=== PATIENT | female | born 1975 | race Two or more races ===

== ENCOUNTER 2024-10-17 22:29 | Emergency (ER) | payer MEDICAID, OTHER ==
[~2024-10-17] VITALS: Ht 170.2 cm; Wt 155.0 kg
--- NOTE | 2024-10-17 23:21 | ED.PDOC ---
GI ASSESSMENT HPI Comments 49-year-old female who came to the ER for abdominal pain. Patient has history of schizophrenia and anxiety. States for the past 3 weeks, she has been having intermittent episodes of epigastric abdominal pain, aching, unprovoked, nonradiating. Also complaining of vaginal/pelvic pain. Denies any nausea or vomiting or changes in bowel habits. Denies any history of abdominal surgeries Chief Complaint: Abdominal Pain Time Seen by MD: 23:20 Reviewed Notes: Nurses Notes Allergies: Coded Allergies: Acetaminophen (Verified Allergy, Unknown, 10/17/24) Codeine (Verified Allergy, Unknown, 10/17/24) Information Source: Patient Mode of Arrival: EMS Timing: Weeks Duration: Intermittent Prehospital treatment: None Quality: Aching Vomitus: None Stool: Normal Severity: None Recent: None Recent Hx of: None Pain Location: Epigastric Modifying Factors: Nothing Associated sign and symptoms: Abdominal Pain Past Medical History PAST MEDICAL HISTORY: Anxiety, Schizophrenia Surgical History: Denies all surgeries 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 COOLING TOWER TECHNICIAN Hx Family History Family History: Reviewed,noncontributory to illness Social History Smoker: Non-Smoker Alcohol: Denies ETOH Use Drugs: Denies Drug Use Lives In: Home Constitutional: denies: chills, diaphoresis, fatigue, fever, malaise, sweats, weakness, others EENTM: denies: blurred vision, double vision, ear bleeding, ear discharge, ear drainage, ear pain, ear ringing, eye pain, eye redness, hearing loss, mouth pain, mouth swelling, nasal discharge, nose bleeding, nose congestion, nose pain, photophobia, tearing, throat pain, throat swelling, voice changes, others Respiratory: denies: cough, hemoptysis, orthopnea, SOB at rest, shortness of breath, SOB with excertion, stridor, wheezing, others Cardiovascular: denies: chest pain, dizzy spells, diaphoresis, Dyspnea on exertion, edema, irregular heart beat, left arm pain, lightheadedness, palpitations, PND, syncope, others Gastrointestinal: reports: abdominal pain; denies: abdomen distended, blood streaked bowels, constipated, diarrhea, dysphagia, difficulty swallowing, hematemesis, melena, nausea, poor appetite, poor fluid intake, rectal bleeding, rectal pain, vomiting, others Genitourinary: denies: abnormal vagina bleeding, burning, dyspareunia, dysuria, flank pain, frequency, hematuria, incontinence, pain, , vagina discharge, urgency, others Neurological: denies: dizziness, fainting, headache, left sided numbness, left sided weakness, numbness, paresthesia, pre-existing deficit, right sided numbness, right sided weakness, seizure, speech problems, tingling, tremors, weakness, others Musculoskeletal: denies: back pain, gout, joint pain, joint swelling, muscle pain, muscle stiffness, neck pain, others Integumetry: denies: bruises, change in color, change in hair/nails, dryness, laceration, lesions, lumps, rash, wounds, others Allergic/Immunocompromised: denies: Difficulty Healing, Frequent Infections, H vinh, Itching, others Hematologic/Lymphatic: denies: anemia, blood clots, easy bleeding, easy bruising, swollen glands, others Endocrine: denies: excessive hunger, excessive sweating, excessive thirst, excessive urination, flushing, intolerance to cold, intolerance to heat, unexplained weight gain, unexplained weight loss, others Psychiatric: denies: anxiety, bipolar disorder, depression, hopeless, panic disorder, schizophrenia, sleepless, suicidal, others Physical Exam General Appearance: No Apparent Distress, Normal HEENT: Normal ENT Inspection, Pharynx Normal, TMs Normal Neck: Full Range of Motion, Non-Tender, Normal, Normal Inspection Respiratory: Chest Non-Tender, Lungs Clear, No Accessory Muscle Use, No Respiratory Distress, Normal Breath Sounds Cardiovascular: No Edema, No JVD, No Murmur, No Gallop, Normal Peripheral Pulses, Regular Rate/Rhythm Breast Exam: Deferred Gastrointestinal: Epigastric, No Organomegaly, No Pulsatile Mass, Normal Bowel Sounds, Soft, Tenderness Genitalia: Deferred Pelvic: Deferred Rectal: Deferred Extremities: No calf tenderness, Normal capillary refill, Normal inspection, Normal range of motion, Non-tender, No pedal edema Musculoskeletal : Apperance: Normal Neurologic: Alert, otolaryngology surgeon II-XII nml as Tested, No Motor Deficits, Normal Affect, Normal Mood, No Sensory Deficits Cerebellar Function: Normal Reflexes: Normal Skin: Dry, Normal Color, Warm Lymphatic: No Adenopathy Was a procedure done? Was a procedure done?: No GI differential Dx Differential Diagnosis: Cholecystitis, Constipation, Diverticular disease, Gastritis/PUD, Gastroenteritis, Hepatitis, Pancreatitis, UTI, Urolithiasis, X-Ray, Labs, Meds, VS Vital Signs Date Time Temp Pulse Resp B/P (MAP) Pulse Ox O2 Delivery O2 Flow Rate FiO2 10/18/24 00:12 98.6 82 102/59 (73) 98 98.6 10/17/24 22:29 97.9 70 20 122/87 (99) 97 Lab Test 10/17/24 23:32 10/17/24 23:25 10/17/24 23:22 Range/Units Beta HCG, Quantitative 1.8 1.5-4.2 mIU/mL Urine Color Yellow Yellow Urine Clarity Clear Clear Urine pH 5.5 5.0-9.0 Urine Specific [place] 1.031 1.001-1.035 Urine Protein Negative Negative Urine Ketones 1+ H Negative Urine Blood Negative Negative /uL Urine Nitrite Negative Negative Urine Bilirubin Negative Negative Urine Urobilinogen Normal Negative mg/dL Urine Leukocyte Esterase 3+ Negative /uL Urine RBC 2 0 - 4 /hpf Urine WBC 12 0 - 5 /hpf Urine Squamous Epithelial Cells Few <5 /hpf Urine Bacteria Few H None Seen /hpf Urine Mucus Few None Seen Urine Glucose Normal Normal mg/dL White Blood Count 5.1 4.4-10.8 10^3/uL Red Blood Count 3.35 L 4.0-5.20 10^6/uL Hemoglobin 10.8 L 12.2-16.2 g/dL Hematocrit 32.0 L 36.0-46.0 % Mean Corpuscular Volume 95.8 80.0-100.0 fL Mean Corpuscular Hemoglobin 32.2 H 28.0-32.0 pg Mean Corpuscular Hemoglobin Concent 33.6 32.0-36.0 g/dL Red Cell Distribution Width 15.4 H 11.8-14.3 % Platelet Count 155 140-450 10^3/uL Mean Platelet Volume 8.6 6.9-10.8 fL Neutrophils (%) (Auto) 40.3 37.0-80.0 % Lymphocytes (%) (Auto) 45.6 10.0-50.0 % Monocytes (%) (Auto) 12.6 H 0.0-12.0 % Eosinophils (%) (Auto) 0.9 0.0-7.0 % Basophils (%) (Auto) 0.6 0.0-2.0 % Neutrophils # (Auto) 2.1 1.6-8.6 10 ^3/uL Lymphocytes # (Auto) 2.3 0.4-5.4 10 ^3/uL Monocytes # (Auto) 0.6 0-1.3 10 ^3/uL Eosinophils # (Auto) 0 0-0.8 10 ^3/uL Basophils # (Auto) 0 0-0.2 10 ^3/uL Nucleated Red Blood Cells 0.1 % Sodium Level 138 136-145 mmol/L Potassium Level 3.9 3.5-5.1 mmol/L Chloride Level 105 98-107 mmol/L Carbon Dioxide Level 28 20-31 mmol/L Anion Gap 5 5-15 Blood Urea Nitrogen 26 H 9-23 mg/dL Creatinine 0.70 0.550-1.02 mg/dL Glomerular Filtration Rate Calc 107 >90 mL/min BUN/Creatinine Ratio 37.1 H 10.0-20.0 Serum Glucose 112 H 74-106 mg/dL Calcium Level 9.9 8.7-10.4 mg/dL Total Bilirubin 0.3 0.2-1.0 mg/dL Aspartate Amino Transferase (AST) 17 13-40 U/L Alanine Aminotransferase (ALT) < 9 7-40 U/L Alkaline Phosphatase 58 46-116 U/L Total Protein 7.4 5.7-8.2 g/dL Albumin 3.8 3.2-4.8 g/dL Examination: ABPLIV CLINICAL INDICATION: llq abdominal pain COMPARISON: None. CONTRAST USED: Intravenous. TECHNIQUE: A post contrast CT study of the abdomen and pelvis is performed after administration of intravenous contrast medium. The examination was performed with [address] scan done according to ALARA (As Low as Reasonably Achievable). Multiplanar reconstructions were obtained. FINDINGS: CT ABDOMEN: Lung Base: The evaluation of lung bases demonstrates no focal infiltrates or pleural effusion. Liver: The liver is normal in size. The portal venous radicles are normal. There is no intrahepatic biliary radicle dilatation. Few small simple hepatic cysts are noted. Gallbladder: The gallbladder is normal and reveals no intrinsic abnormality. The common bile duct is not dilated. Pancreas: The pancreas is normal in size and shape. No focal lesion is seen within. The peripancreatic fat-planes are normal. Spleen: The spleen is normal in size and does not show any focal abnormality. Retroperitoneum: Both adrenal glands are normal in size and morphology. There is no significant retroperitoneal lymphadenopathy. The kidneys are normal in size with no hydronephrosis or renal calculi. Vessels: Aorta, IVC and the mesenteric vessels appear unremarkable. Stomach and Bowel: The bowel loops are unremarkable. There is no ascites. Skeletal System: Thoracolumbar spine and the pelvic bone appear unremarkable. Multilevel small anterior endplate osteophytes are noted. CT PELVIS: Appendix: The appendix is unremarkable in appearance. Colon: The ascending, transverse, descending, sigmoid colon and rectum are unremarkable. Bladder: The urinary bladder is unremarkable. Pelvic Organs: Uterus is unremarkable. No adnexal mass lesion seen. No pelvic lymphadenopathy is identified. No abnormal fluid collection is seen. IMPRESSION: 1. No acute intra-abdominal pathology seen. 2. No ascites/pneumoperitoneum/abdominal mass lesion seen. Electronically Signed Time of 1ST Reevaluation: 23:18 Reevaluation 1ST: Unchanged Patient Education/Counseling: Diagnosis, Treatment Family Education/Counseling: No Family Present Departure 1 Departure Time of Disposition: 04:59 (Patient presented with abdominal pain that was concerning for possible appendicits, gastritis, cholecystitis, colitis, gastroenteritis, or orther possible surgical emergency. Data: 1. I ordered and reviewed the result of at least 3 labs including a CBC, BMP, and Urinalysis. 2. I independently interpreted the following tests: CT Abdoment and Pelvis is concerning for benign abdomen.Risk:This patient has a high risk of morbidity due to further diagnostic testing or treatment and may suffer from an acute abdominal process disorder. Fortunately workup reveals a benign abdomen and patient can be safely discharged to home with outpatient follow up.) Impression: Primary Impression: Abdominal pain Qualified Codes: R10.84 - Generalized abdominal pain Disposition: 01 HOME / SELF CARE / HOMELESS Condition: Stable Additional Instructions: Your workup today was benign including normal labs and a normal CT scan. You can take Motrin as needed for pain. You should follow up with your regular doctor within 1 week. You should stay well rested and well hydrated. If your symptoms worsen or you have any other concerns please return to the emergency room. Discharged With: Self Critical Care Note Critical Care Time?: No Stability Stability form required: No Heart Score Heart Score: Heart Score Response (Comments) Value History N/A 0 EKG N/A 0 Age N/A 0 Risk Factors N/A 0 Troponin N/A 0 Total 0 I personally scribed for SYMONE KIRK MD ([facility]) on 10/17/24 at 23:21. Electronically submitted by [facility] I personally scribed for SYMONE KIRK MD ([facility]) on 10/18/24 at 04:16. Electronically submitted by Robin Zazueta ([facility] SYMONE KIRK MD Oct 17, 2024 23:21
[2024-10-17 23:40] LABS: Basophils # (auto) 0 10 ^3/uL (0-0.2); Basophils % (auto) 0.6 % (0.0-2.0); Eosinophils # (auto) 0 10 ^3/uL (0-0.8); Eosinophils % (auto) 0.9 % (0.0-7.0); Hemoglobin 10.8 g/dL (12.2-16.2); Lymphocytes # (auto) 2.3 10 ^3/uL (0.4-5.4); Lymphocytes % (auto) 45.6 % (10.0-50.0); Mean Corpuscular Hemoglobin 32.2 pg (28.0-32.0); Mean Corpuscular Hgb Conc. 33.6 g/dL (32.0-36.0); Mean Corpuscular Volume 95.8 fL (80.0-100.0); Monocytes # (auto) 0.6 10 ^3/uL (0-1.3); Monocytes % (auto) 12.6 % (0.0-12.0); Neutrophils # (auto) 2.1 10 ^3/uL (1.6-8.6); Neutrophils % (auto) 40.3 % (37.0-80.0); Nucleated Red Blood Cells % 0.1 %; Platelet Count (auto) 155 10^3/uL (140-450); Red Blood Cells 3.35 10^6/uL (4.0-5.20); Red Cell Distribution Width 15.4 % (11.8-14.3); White Blood Cell 5.1 10^3/uL (4.4-10.8)
[2024-10-18] LABS: Albumin 3.8 g/dL (3.2-4.8); Alkaline Phosphatase 58 U/L (46-116); Anion Gap 5 (5-15); Aspartate Aminotransferase 17 U/L (13-40); BUN/Creatinine Ratio 37.1 (10.0-20.0); Bilirubin, Total 0.3 mg/dL (0.2-1.0); Calcium 9.9 mg/dL (8.7-10.4); Carbon Dioxide 28 mmol/L (20-31); Chloride 105 mmol/L (98-107); Potassium 3.9 mmol/L (3.5-5.1); Sodium 138 mmol/L (136-145); Total Protein 7.4 g/dL (5.7-8.2)
[2024-10-18 00:12] VITALS: TEMP 98.6
[2024-10-18 00:14] LABS: Blood Urea Nitrogen 26 mg/dL (9-23); Glucose 112 mg/dL (74-106)
[2024-10-18 00:14] LABS: Urine Bacteria FEW /hpf (None Seen); Urine Blood Negative /uL (Negative); Urine Clarity Clear (Clear); Urine Color Yellow (Yellow); Urine Mucus FEW (None Seen); Urine Protein, UAD Negative (Negative); Urine Specific Gravity 1.031 (1.001-1.035); Urine Squamous Epithelial Cell FEW /hpf (<5); Urine Urobilinogen Normal (Negative); Urine WBC 12 /hpf (0 - 5); Urine pH 5.5 (5.0-9.0)
[2024-10-18 00:15] LABS: Alanine Aminotransferase < 9 U/L (7-40)
--- NOTE | 2024-10-18 01:06 | DVH ---
EXAM: XY CHEST PORTABLE CLINICAL HISTORY: abdominal pain TECHNIQUE: Single AP view of the chest WID: COMPARISON: None FINDINGS: Lines and tubes: None Chest: The heart size and pulmonary vasculature is within normal limits. No pleural effusion, pneumothorax, or consolidation. The osseous structures are grossly intact. IMPRESSION: No acute cardiopulmonary abnormality.
[2024-10-18] MEDS: IOHEXOL 300 MG/ML 100ML BOTTLE IJ ONE (01:25)
--- NOTE | 2024-10-18 03:19 | DVH ---
Examination: ABPLIV CLINICAL INDICATION: llq abdominal pain COMPARISON: None. CONTRAST USED: Intravenous. TECHNIQUE: A post contrast CT study of the abdomen and pelvis is performed after administration of i ntravenous contrast medium. The examination was performed with [address] scan done accor ding to ALARA (As Low as Reasonably Achievable). Multiplanar reconstructions were obtained. FINDINGS: CT ABDOMEN: Lung Base: The evaluation of lung bases demonstrates no focal infiltrates or pleural effusion. Liver: The liver is normal in size. The portal venous radicles are normal. There is no intrahepati c biliary radicle dilatation. Few small simple hepatic cysts are noted. Gallbladder: The gallbladder is normal and reveals no intrinsic abnormality. The common bile duct i s not dilated. Pancreas: The pancreas is normal in size and shape. No focal lesion is seen within. The peripancre atic fat-planes are normal. Spleen: The spleen is normal in size and does not show any focal abnormality. Retroperitoneum: Both adrenal glands are normal in size and morphology. There is no significant ret roperitoneal lymphadenopathy. The kidneys are normal in size with no hydronephrosis or renal calculi . Vessels: Aorta, IVC and the mesenteric vessels appear unremarkable. Stomach and Bowel: The bowel loops are unremarkable. There is no ascites. Skeletal System: Thoracolumbar spine and the pelvic bone appear unremarkable. Multilevel small ante rior endplate osteophytes are noted. CT PELVIS: Appendix: The appendix is unremarkable in appearance. Colon: The ascending, transverse, descending, sigmoid colon and rectum are unremarkable. Bladder: The urinary bladder is unremarkable. Pelvic Organs: Uterus is unremarkable. No adnexal mass lesion seen. No pelvic lymphadenopathy is identified. No abnormal fluid collection is seen. IMPRESSION: 1. No acute intra-abdominal pathology seen. 2. No ascites/pneumoperitoneum/abdominal mass lesion seen. Electronically Signed 10/18/2024 03:18 Brittney Jones
[2024-10-18 06:48] VITALS: BP 139/83; PULSE 72; RESP 18; O2SAT 98
== END 2024-10-18 06:52 | disposition home or self-care (01) ==
LOC: ER 22:29 → EDBD 22:29 → ER 10-18 06:52
DX: R10.13 Epigastric pain (principal); R10.2 Pelvic and perineal pain; F20.9 Schizophrenia, unspecified; F41.9 Anxiety disorder, unspecified; Z88.5 Allergy status to narcotic agent
CPT/HCPCS: 36415; 71045; 74177; 80053; 81001; 84702; 85025; 99285; Q9967

== ENCOUNTER 2025-02-07 21:06 | Emergency (ER) | payer MEDICAID ==
[~2025-02-07] VITALS: Ht 170.2 cm; Wt 91.5 kg
[2025-02-07 21:34] LABS: Urine Bacteria None Seen /hpf (None Seen)
[2025-02-07 22:11] LABS: Phencyclidine Screen, Urine Neg (NEGATIVE)
[2025-02-07 22:45] LABS: Amphetamine Screen, Urine Neg (NEGATIVE); Barbiturate Scree,Urine Neg (NEGATIVE); Benzodiazephine Screen, Urine Neg (NEGATIVE); Cannabinoid Screen, Urine Neg (NEGATIVE); Cocaine Screen, Urine Neg (NEGATIVE); Opiate Scree,Urine Neg (NEGATIVE)
[2025-02-07 22:47] LABS: Urine Blood Negative /uL (Negative); Urine Clarity Clear (Clear); Urine Color Light-Yellow (Yellow); Urine Protein, UAD Negative (Negative); Urine Specific Gravity 1.021 (1.001-1.035); Urine Squamous Epithelial Cell FEW /hpf (<5); Urine Urobilinogen Normal (Negative); Urine WBC 1 /HPF (0-5); Urine pH 6.5 (5.0-9.0)
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
[2025-02-08 01:48] VITALS: PULSE 87; O2SAT 98
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
[2025-02-08 05:37] LABS: Basophils # (auto) 0 10 ^3/uL (0-0.2); Basophils % (auto) 0.5 % (0.0-2.0); Eosinophils # (auto) 0.1 10 ^3/uL (0-0.8); Eosinophils % (auto) 1.4 % (0.0-7.0); Hematocrit 32.3 % (36.0-46.0); Hemoglobin 10.9 g/dL (12.2-16.2); Lymphocytes % (auto) 43.4 % (10.0-50.0); Mean Corpuscular Hemoglobin 31.7 pg (28.0-32.0); Mean Corpuscular Hgb Conc. 33.7 g/dL (32.0-36.0); Mean Corpuscular Volume 93.9 fL (80.0-100.0); Monocytes # (auto) 0.6 10 ^3/uL (0-1.3); Monocytes % (auto) 13.7 % (0.0-12.0); Neutrophils # (auto) 1.9 10 ^3/uL (1.6-8.6); Nucleated Red Blood Cells % 0.1 %; Platelet Count (auto) 102 10^3/uL (140-450); Red Blood Cells 3.44 10^6/uL (4.0-5.20); Red Cell Distribution Width 13.9 % (11.8-14.3); White Blood Cell 4.5 10^3/uL (4.4-10.8)
[2025-02-08 06:00] LABS: Chloride 106 mmol/L (98-107); Potassium 4.2 mmol/L (3.5-5.1); Sodium 142 mmol/L (136-145)
[2025-02-08 06:01] LABS: Anion Gap 5 (5-15); Calcium 9.9 mg/dL (8.7-10.4); Carbon Dioxide 31 mmol/L (20-31)
[2025-02-08 06:06] LABS: BUN/Creatinine Ratio 31.3 (10.0-20.0); Blood Urea Nitrogen 21 mg/dL (9-23); Glucose 95 mg/dL (74-106)
[2025-02-08 08:51] VITALS: PULSE 77; RESP 18; O2SAT 98
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
[2025-02-08] MEDS: IBUPROFEN 400 MG TAB PO ONE (18:54)
[2025-02-08 19:30] VITALS: PULSE 76; RESP 18; O2SAT 98
[2025-02-10 00:07] LABS: Chlamydia Trachomatis, NAA Negative (Negative); Neisseria gonorrhoeae, NAA Negative (Negative)
[2025-02-10 02:30] VITALS: PULSE 72; RESP 16; O2SAT 99
[2025-02-11 19:50] VITALS: PULSE 79; RESP 16; O2SAT 99
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
[2025-02-12 09:21] VITALS: BP 133/70; PULSE 98; RESP 16; TEMP 98; O2SAT 98
== END 2025-02-12 10:19 | disposition home or self-care (01) ==
LOC: ER 21:10
DX: T74.21XA Adult sexual abuse, confirmed, initial encounter (principal); F41.9 Anxiety disorder, unspecified; F20.9 Schizophrenia, unspecified; F31.9 Bipolar disorder, unspecified; E66.9 Obesity, unspecified; Z88.5 Allergy status to narcotic agent; Y92.89 Other specified places as the place of occurrence of the external cause
CPT/HCPCS: 36415; 80048; 80307; 81001; 85025; 86703; 86706; 86803